=== PATIENT | female | born 2000 | race Caucasian/White ===

== ENCOUNTER 2021-10-03 14:07 | Emergency (ER) | payer OTHER ==
[~2021-10-03] VITALS: Ht 154.9 cm; Wt 59.0 kg
[2021-10-03 14:13] VITALS: BP 114/65
--- NOTE | 2021-10-03 14:15 | PHYS DOC ---
Past History Past Medical History Miscarriages Smoking: Cigarettes Alcohol Use: None Drug Use: None General Adult EDM: Chief Complaint: VAGINAL BLEEDING HPI: HPI: Patient is a 21-year-old female here with slight vaginal bleeding, which began shortly prior to arrival. She denies abdominal pain or cramping. She is currently . LMP was mid July. She reports this is her ninth , she has had 8 previous miscarriages. She is from [place] but recently moved here and is staying with her mother. She reports that she has miscarried within the first trimester, usually less than 10 weeks. It sounds like she underwent hysteroscopy and salpingoscopy, which sounds like it was found to be unremarkable. She denies dizziness, weakness, nausea, vomiting, fevers, chills. She denies urinary symptoms. She denies any pelvic or abdominal trauma. She reports that no one has been able to tell her why she has had so many miscarriages. Review of Systems: Review of Systems: Constitutional: Denies fever or chills HENT: Denies nasal congestion or sore throat Respiratory: Denies cough or shortness of breath Cardiovascular: Denies chest pain or edema GI: Denies abdominal pain, nausea, vomiting or diarrhea. : Denies urinary symptoms. Vaginal bleeding, spotting. Denies pelvic pain. Musculoskeletal: Denies back pain or joint pain Integument: Denies rash Neurologic: Denies headache, focal weakness or sensory changes Psychiatric: Denies depression or anxiety Physical Exam: PE: Constitutional: Well developed, well nourished, no acute distress, non-toxic appearance. [] HENT: Normocephalic, atraumatic Eyes: Conjunctiva normal, no discharge. [] Neck: Trachea is midline. Cardiovascular:Heart rate regular rhythm, +2 radial and +2 dorsalis pedis pulses bilateral Lungs & Thorax: Clear to auscultation bilaterally without rales, rhonchi or wheezes Abdomen: Abdomen is soft, nondistended, nontender to palpation. No palpable masses organomegaly. : No external lesions. Scant blood in vault. Cervix is clear, non- erythematous, no purulent discharge. No active bleeding, no clots. No CMT. No tenderness with bimanual exam. Os is closed. Skin: Warm, dry, no erythema, no rash. [] Back: No tenderness, no CVA tenderness. [] Extremities: No tenderness, no cyanosis, no clubbing, ROM intact, no edema. [] Neurologic: Alert and oriented X 3, normal motor function, normal sensory function, no focal deficits noted. [] Psychologic: Affect normal, judgement normal, mood normal. [] EKG: EKG: [] Radiology/Procedures: Radiology/Procedures: IMAGING REPORT Signed PATIENT: NIKKI LYNN ACCOUNT: [id number] : 2000 LOCATION: ER AGE: 21 SEX: F EXAM STATUS: REG ER ORD. PHYSICIAN: LUPE DO DO REASON: , bleeding PROCEDURE: OB <14 WKS W/TV US OB <14 WKS +TV Clinical Indication: Reason: , bleeding /history of miscarriage. Comparison: None. TECHNIQUE: Real-time ultrasound imaging of the pelvis using transabdominal and transvaginal window is performed. Findings: The maternal ovaries demonstrate normal blood flow. There is a possible small right corpus luteum. Uterus is retroverted measuring 9.1 x 5.9 x 5.4 cm. There is intrauterine gestational sac with normal shape. No perigestational hemorrhage is seen. A yolk sac and pole are seen inside. [place]-rump length 0.6 cm, 6 weeks and 3 days. Estimated heart is 113 bpm. EDC ultrasound is May 26, 2022. EDC by LMP is 05/22/2022. No cul-de-sac free fluid is seen. No evidence of adnexal mass. IMPRESSION: 1. Single live intrauterine gestation, estimated sonographic gestational age is 6 weeks and 3 days. 2. Probable small right corpus luteum. Electronically signed by: Franco Koehler MD (10/03/2021 4:02 PM) [facility] DICTATED AND SIGNED BY: FRANCO KOEHLER MD DATE: 10/03/21 4295 CC: LUPE DO DO; [facility] ~ Heart Score: C/O Chest Pain: No Risk Factors: Risk Factors: DM, Current or recent (<one month) smoker, HTN, HLP, family history of CAD, obesity. Risk Scores: Score 0 - 3: 2.5% MACE over next 6 weeks - Discharge Home Score 4 - 6: 20.3% MACE over next 6 weeks - Admit for Clinical Observation Score 7 - 10: 72.7% MACE over next 6 weeks - Early Invasive Strategies Course & Med Decision Making: Course & Med Decision Making Pertinent Labs and Imaging studies reviewed. (See chart for details) I discussed the findings, differential diagnosis and plan of care with the patient. She is given information for outpatient [facility] services. She reports that her mother is going to see if she will be able to see her own hand cooper helper as well. I gave her information for Dr. Reilly at [place]. I recommend strict pelvic rest, and I gave her very strict return precautions. She verbalizes understanding. Dragon Disclaimer: Jose Disclaimer: This electronic medical record was generated, in whole or in part, using a voice recognition dictation system. Departure Departure: Impression: Primary Impression: Threatened Disposition: HOME / SELF CARE / HOMELESS Condition: STABLE Referrals: [facility] (PCP) ARIADNA REILLY MD Patient Instructions: Threatened Miscarriage Additional Instructions: Return to the ER for more severe or heavier bleeding, severe abdominal pain, dizziness, temperature 100.4 or higher, or for any other concerns. Make sure to avoid any new, strenuous activities, adhere to strict pelvic rest, no inte rcourse, nothing per the vagina. Please contact your OB to arrange for close follow-up. I am also giving you information for Dr. Reilly, at [facility]. LUPE DO DO Oct 03, 2021 14:15
[2021-10-03 15:03] LABS: BASO % 1 % (0-3); EOS # 0.1 x10^3/uL (0.0-0.7); EOS % 2 % (0-3); HEMATOCRIT 33.7 % (36.0-47.0); LYMPH # 2.3 x10^3/uL (1.0-4.8); LYMPH % 26 % (24-48); MEAN CORPUSCULAR HEMOGLOBIN 27 pg (25-35); MEAN CORPUSCULAR HGB CONC 33 g/dL (31-37); MEAN CORPUSCULAR VOLUME 82 fL (79-100); MONO # 0.6 x10^3/uL (0.0-1.1); MONO % 6 % (0-9); NEUT # 5.7 x10^3uL (1.8-7.7); NEUT % 65 % (31-73); PLATELET COUNT 244 x10^3/uL (140-400); RED BLOOD COUNT 4.13 x10^6/uL (3.50-5.40); WHITE BLOOD COUNT 8.7 x10^3/uL (4.0-11.0)
[2021-10-03 15:14] LABS: CALCIUM 8.2 mg/dL (8.5-10.1); CREATININE 0.5 mg/dL (0.6-1.0); GFR 155.7; POTASSIUM 3.6 mmol/L (3.5-5.1)
[2021-10-03 15:42] LABS: BACTERIA,URINE 0 /HPF (0-FEW); CLARITY,URINE CLEAR; COLOR,URINE YELLOW; GLUCOSE,URINE NEG (NEG); NITRITE,URINE NEG (NEG); SQUAMOUS EPITHELIAL CELL,UR FEW /LPF; UROBILINOGEN,URINE 0.2 mg/dL (0.2 mg/dL)
--- NOTE | 2021-10-03 16:04 | RAD ---
US OB <14 WKS +TV Clinical Indication: Reason: , bleeding /history of miscarriage. Comparison: None. TECHNIQUE: Real-time ultrasound imaging of the pelvis using transabdominal and transvaginal window is performed. Findings: The maternal ovaries demonstrate normal blood flow. There is a possible small right corpus luteum. Uterus is retroverted measuring 9.1 x 5.9 x 5.4 cm. There is intrauterine gestational sac with normal shape. No perigestational hemorrhage is seen. A yol k sac and pole are seen inside. [place]-rump length 0.6 cm, 6 weeks and 3 days. Estimated heart is 113 bpm. EDC ultrasound is May 26, 2022. EDC by LMP is 05/22/2022. No cul-de-sac free fluid is seen. No evidence of adnexal mass. IMPRESSION: 1. Single live intrauterine gestation, estimated sonographic gestational age is 6 weeks and 3 days. 2. Probable small right corpus luteum. Electronically signed by: Franco Koehler MD (10/03/2021 4:02 PM) [facility]
[2021-10-04 14:11] LABS: CHLAMYDIA PROBE Negative (Negative)
== END 2021-10-03 17:04 | disposition home or self-care (01) ==
LOC: EDSEX 14:07 → ER 14:07
DX: O20.0 Threatened abortion (principal); O99.331 Smoking (tobacco) complicating pregnancy, first trimester; Z3A.01 Less than 8 weeks gestation of pregnancy
CPT/HCPCS: 36415; 76801; 76817; 80048; 81001; 81025; 84702; 85025; 86900; 86901; 87491; 87591; 99284; Q0111

== ENCOUNTER 2021-10-05 11:24 | Emergency (ER) | payer OTHER ==
[~2021-10-05] VITALS: Ht 154.9 cm; Wt 63.0 kg
[2021-10-05 12:06] LABS: BASO # 0.1 x10^3/uL (0.0-0.2); BASO % 1 % (0-3); EOS # 0.1 x10^3/uL (0.0-0.7); EOS % 2 % (0-3); HEMATOCRIT 36.1 % (36.0-47.0); HEMOGLOBIN 11.7 g/dL (12.0-15.5); LYMPH # 2.1 x10^3/uL (1.0-4.8); LYMPH % 25 % (24-48); MEAN CORPUSCULAR HEMOGLOBIN 27 pg (25-35); MEAN CORPUSCULAR HGB CONC 32 g/dL (31-37); MEAN CORPUSCULAR VOLUME 82 fL (79-100); MONO # 0.5 x10^3/uL (0.0-1.1); MONO % 6 % (0-9); NEUT # 5.7 x10^3uL (1.8-7.7); NEUT % 67 % (31-73); PLATELET COUNT 267 x10^3/uL (140-400); RED BLOOD COUNT 4.41 x10^6/uL (3.50-5.40); RED CELL DISTRIBUTION WIDTH 16.9 % (11.5-14.5); WHITE BLOOD COUNT 8.6 x10^3/uL (4.0-11.0)
[2021-10-05 12:37] LABS: CLARITY,URINE CLOUDY; COLOR,URINE YELLOW; GLUCOSE,URINE NEG (NEG); NITRITE,URINE NEG (NEG); UROBILINOGEN,URINE 0.2 mg/dL (0.2 mg/dL)
[2021-10-05 12:38] LABS: AMORPHOUS SEDIMENT,UR PRESENT /HPF; BACTERIA,URINE 0 /HPF (0-FEW); SQUAMOUS EPITHELIAL CELL,UR FEW /LPF; WBC,URINE 0 /HPF (0-4)
--- NOTE | 2021-10-05 12:47 | PHYS DOC ---
Past History Additional Past Medical Histor: 8 miscarriages Past Surgical History: Other Smoking: Cigarettes Alcohol Use: None Drug Use: None General Adult EDM: Chief Complaint: VAGINAL BLEEDING HPI: HPI: Patient is a is a 21-year-old female who presents with vaginal bleeding. Patient states that she is about 6 weeks . She is 9 para 0. Her bleeding is painless. She was seen 2 days ago in the emergency department for similar symptoms. She had an ultrasound done at that time which demonstrated an intrauterine gestation at 6 weeks and 3 days age. Hemoglobin was 11.0 last visit and Rh+ blood type was obtained. She is be positive. Today she passed a clot and came back for reassessment. She denies have any pain currently. No burning with urination or blood in the urine. Review of Systems: Review of Systems: Constitutional: Denies fever Eyes: Denies change in visual acuity or eye pain HENT: Denies sore throat Respiratory: Denies shortness of breath Cardiovascular: Denies chest pain GI: Denies abd pain : Denies dysuria Musculoskeletal: Denies back or extremity injury Integument: Denies rash or skin lesions Neurologic: Denies headache, focal weakness or sensory changes All other systems were reviewed and found to be within normal limits, except as documented in this note. Allergies: Allergies: Allergies Coded Allergies Type Severity Reaction Last Updated Verified No Known Drug Allergies 10/05/21 No Physical Exam: PE: Constitutional: Well developed, well nourished, no acute distress, non-toxic appearance. HENT: Normocephalic, atraumatic, bilateral external ears normal, mucosa moist, nose normal. Eyes: EOMI, conjunctiva normal, no discharge. Neck: Normal range of motion, supple, no stridor, no meningeal signs. Cardiovascular: Regular rate and rhythm Lungs & Thorax: Bilateral breath sounds clear to auscultation Abdomen: Soft, no tenderness or obvious masses Skin: Warm, dry, no erythema, no rash. Extremities: No tenderness, no cyanosis, no clubbing, ROM intact, no edema. Neurologic: Alert and oriented, normal motor function, normal sensory function, no focal deficits noted. Psychologic: Affect normal, judgement normal, mood normal. Current Patient Data: Labs: Laboratory Tests Test 10/05/21 11:40 10/05/21 11:45 Urine Collection Type Clean catch Urine Color Yellow Urine Clarity Cloudy Urine pH 8.5 Urine Specific Rice 1.020 Urine Protein 30 mg/dl (NEG-TRACE) Urine Glucose (UA) Neg mg/dL (NEG) Urine Ketones (Stick) Neg mg/dL (NEG) Urine Blood Large (NEG) Urine Nitrite Neg (NEG) Urine Bilirubin Neg (NEG) Urine Urobilinogen Dipstick 0.2 mg/dL (0.2 mg/dL) Urine Leukocyte Esterase Neg (NEG) Urine RBC 6-10 /HPF (0-2) Urine WBC 0 /HPF (0-4) Urine Squamous Epithelial Cells Few /LPF Urine Amorphous Sediment Present /HPF Urine Bacteria 0 /HPF (0-FEW) White Blood Count 8.6 x10^3/uL (4.0-11.0) Red Blood Count 4.41 x10^6/uL (3.50-5.40) Hemoglobin 11.7 g/dL (12.0-15.5) L Hematocrit 36.1 % (36.0-47.0) Mean Corpuscular Volume 82 fL (79-100) Mean Corpuscular Hemoglobin 27 pg (25-35) Mean Corpuscular Hemoglobin Concent 32 g/dL (31-37) Red Cell Distribution Width 16.9 % (11.5-14.5) H Platelet Count 267 x10^3/uL (140-400) Neutrophils (%) (Auto) 67 % (31-73) Lymphocytes (%) (Auto) 25 % (24-48) Monocytes (%) (Auto) 6 % (0-9) Eosinophils (%) (Auto) 2 % (0-3) Basophils (%) (Auto) 1 % (0-3) Neutrophils # (Auto) 5.7 x10^3uL (1.8-7.7) Lymphocytes # (Auto) 2.1 x10^3/uL (1.0-4.8) Monocytes # (Auto) 0.5 x10^3/uL (0.0-1.1) Eosinophils # (Auto) 0.1 x10^3/uL (0.0-0.7) Basophils # (Auto) 0.1 x10^3/uL (0.0-0.2) Maternal Serum HCG Beta Subunit 3486 mIU/mL (0-6) H Vital Signs: Vital Signs Date Time Temp Pulse Resp B/P (MAP) Pulse Ox O2 Delivery O2 Flow Rate FiO2 10/05/21 11:40 98.9 104 18 128/74 (92) 99 EKG: EKG: [] Radiology/Procedures: Radiology/Procedures: [] Heart Score: C/O Chest Pain: No Risk Factors: Risk Factors: DM, Current or recent (<one month) smoker, HTN, HLP, family history of CAD, obesity. Risk Scores: Score 0 - 3: 2.5% MACE over next 6 weeks - Discharge Home Score 4 - 6: 20.3% MACE over next 6 weeks - Admit for Clinical Observation Score 7 - 10: 72.7% MACE over next 6 weeks - Early Invasive Strategies Course & Med Decision Making: Course & Med Decision Making Pertinent Labs and Imaging studies reviewed. (See chart for details) [] This is a 21-year-old female for semester bleeding. Quantitative beta hCG today is essentially unchanged from 2 days prior. Hemoglobin is 11.7 and urinalysis is negative for evidence of infection. At this point I think it is inevitable that she will miscarry given her lack of rise in quantitative hCG levels. We will refer her to [facility], she stable for discharge at this time. Jose Disclaimer: Jose Disclaimer: This electronic medical record was generated, in whole or in part, using a voice recognition dictation system. Departure Departure: Impression: Primary Impression: Inevitable spontaneous Disposition: HOME / SELF CARE / HOMELESS Condition: STABLE Referrals: [facility] (PCP) [facility] Patient Instructions: Incomplete Miscarriage GURWINDER SWEET MD Oct 05, 2021 12:47
[2021-10-05 12:52] VITALS: BP 100/61
== END 2021-10-05 12:53 | disposition home or self-care (01) ==
LOC: ER 11:24
DX: O03.9 Complete or unspecified spontaneous abortion without complication (principal); F17.210 Nicotine dependence, cigarettes, uncomplicated
CPT/HCPCS: 36415; 81001; 84702; 85025; 99283